=== PATIENT | female | born 1970 | race Caucasian/White ===

== ENCOUNTER 2017-02-22 18:11 | Emergency (ER) | payer MEDICAID, OTHER ==
[~2017-02-22] VITALS: Ht 167.6 cm; Wt 66.0 kg
[~2017-02-22 18:11] MED LIST: ADDE10; FLAG500T PO; MACR100C PO; MEDR4PAK3 PO; METR500T10 PO
[2017-02-22 18:12] VITALS: BP 133/83; PULSE 83; RESP 16; TEMP 98.4; O2SAT 100
[2017-02-22] MEDS ORDERED: KETO10 PO (18:36)
[2017-02-22] MEDS ORDERED: CLIN1CAP6 PO (18:36)
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
== END 2017-02-22 18:46 | disposition home or self-care (01) ==
LOC: NETRI 18:11 → EDTENT 18:46
DX: K08.89 Other specified disorders of teeth and supporting structures (principal); Z72.0 Tobacco use
CPT/HCPCS: 99284